=== PATIENT | male | born 1990 | race Caucasian/White ===

== ENCOUNTER → 2016-12-04 | Outpatient (CLI) | payer MEDICAID ==
[~2016-12-04] MED LIST: KEFLEX PO; VICODIN 5/500 T1 TAB PO
--- NOTE | ~2016-12-04 | EKG ---
PATIENT: PREM TRIMBLE UNIT #: [id number] Ventricular Rate: 80 BPM Atrial Rate: 80 BPM P-R Interval: 154 ms QRS Duration: 104 ms Q-T Interval: 374 ms QTC Calculation(Bezet): 431 ms P [place]: 20 degrees Calculated R [place]: 62 degrees Calculated T [place]: 58 degrees Diagnosis Line: Normal sinus rhythm Diagnosis Line: Normal ECG Diagnosis Line: No previous ECGs available Diagnosis Line: Confirmed by ABIGAIL CAMPOS MD ([id number]) on Diagnosis Line: 12/06/2016 10:41:58 AM INTERPRETING MD: BETH MEEHAN
[2016-12-04 09:21] LABS: URINE APPEARANCE CLEAR; URINE BILIRUBIN NEG (NEG); URINE BLOOD NEG (NEG); URINE COLOR YELLOW; URINE GLUCOSE NEG (NORM); URINE KETONE NEG (NEG); URINE LEUKOCYTE ESTERASE NEG (NEG); URINE NITRATE NEG (NEG); URINE SPECIFIC GRAVITY >=1.030 (1.003-1.035); URINE UROBILINOGEN 0.2 MG/DL (NORM)
[2016-12-04 09:24] LABS: MICRO INDICATED? NO; URINE PROTEIN NEG (NEG)
[2016-12-04 09:33] LABS: GLOM FILT RATE Estimated 102.7 mL/min (>60)
[2016-12-04 09:39] LABS: POTASSIUM 3.6 mmol/L (3.5-5.1)
== END | disposition home or self-care (01) ==
LOC: SLAB 08:50 → SEKG 08:50
PROVIDERS: Psychiatry & Neurology Psychiatry
DX: Z51.81 Encounter for therapeutic drug level monitoring (principal); Z79.899 Other long term (current) drug therapy
CPT/HCPCS: 36415; 80051; 80178; 81003; 82565; 82947; 84443; 84520; 93005